=== PATIENT | female | born 1975 | race Caucasian/White ===

== ENCOUNTER 2019-01-18 09:54 | Emergency (ER) | payer MEDICAID ==
--- NOTE | 2019-01-18 12:05 | EDM.PDOCBH ---
ED HPI GENERAL MEDICAL PROBLEM - General Chief Complaint: Behavioral/Psych Stated Complaint: BI POLAR ISSUES Time Seen by Provider: 01/18/19 11:11 Source of Information: Reports: Patient, Provider (Dr. Elizalde's nurse from [facility]), RN Notes Reviewed History Limitations: Reports: No Limitations - History of Present Illness INITIAL COMMENTS - FREE TEXT/NARRATIVE: Patient is a 43-year-old female who presents to the ED for the evaluation of her bipolar. The patient states that she has had a diagnosis of bipolar for around 20 years now. She has tried multiple medications for this, and is most recently been started on Vraylar 2 weeks ago. She was to taper off of lithium while starting the Vraylar. Patient notes today however she is not noticing benefit from the Vraylar, she feels as if she is crawling up a wall, she notes she cannot sleep at night, she states that she is feeling more depressed, and has developed some tremors as well. She denies any sort of hearing any voices, or seeing anything that is not there. She further denies any suicidal thoughts or plans at this time. She notes some mild diarrhea, but believes this to be a side effect of the medication, otherwise she has no complaints. I did call her psychiatrist office, Dr. Elizalde, and was able to speak with his nurse regarding the case. The nurse states that the patient was supposed to be started on Vraylar on January 07 and was supposed to taper off the lithium, and take one 150 mg tablet every other day for a week. The nurse states that the patient called her last week in a panic, as she states she was not feeling well , and scheduled an appointment with a provider to be seen same day, but then subsequently canceled the appointment, as she had to put one of her cats down. The nurse notes that the patient told her she did not start the Vraylar as previously prescribed, and started taking the Vraylar last week, and quit the lithium altogether without tapering, and then started taking the lithium again without being told to start taking the lithium. The nurse notes that the patient is semi-noncompliant with her medications, states that she takes the medications for roughly a week, and just quits taking them because they make her feel weird. - Related Data Allergies Allergy/AdvReac Type Severity Reaction Status Date / Time No Known Allergies Allergy Verified 01/18/19 11:02 Home Meds: Home Meds Cariprazine Hydrochloride [Vraylar] 1.5 mg PO DAILY 01/18/19 [History] Levothyroxine 75 mg PO DAILY 01/18/19 [History] [place] Carbonate 150 mg PO ASDIRECTED 01/18/19 [History] Terazosin [Hytrin] 2 mg PO DAILY 01/18/19 [History] Topiramate [Topamax] 100 mg PO DAILY 01/18/19 [History] buPROPion HCl [Bupropion Xl] 150 mg PO DAILY 01/18/19 [History] busPIRone [Buspar] 15 mg PO DAILY 01/18/19 [History] Past Medical History Psychiatric History: Reports: Bipolar, Depression Social & Family History - Tobacco Use Smoking Status *Q: Never Smoker - Caffeine Use Caffeine Use: Reports: None - Recreational Drug Use Recreational Drug Use: No ED ROS GENERAL - Review of Systems Review Of Systems: See Below Constitutional: Denies: Fever, Chills Respiratory: Denies: Shortness of Breath Cardiovascular: Denies: Chest Pain GI/Abdominal: Reports: Diarrhea. Denies: Abdominal Pain, Nausea, Vomiting : Denies: Dysuria Neurological: Denies: Confusion, Headache Psychiatric: Reports: Depression (patient states increase in depression). Denies: Confusion, Cravings, Hallucinations, Homicidal Ideation, Mood Lability, Suicidal Ideation ED EXAM, BEHAVIORAL HEALTH - Physical Exam Exam: See Below Exam Limited By: No Limitations General Appearance: Alert, WD/WN, No Apparent Distress Eye Exam: Bilateral Eye: EOMI, Normal Inspection, PERRL Ears: Normal External Exam, Normal Canal, Hearing Grossly Normal, Normal TMs Throat/Mouth: Normal Inspection, Normal Lips, Normal Teeth, Normal Gums, Normal Oropharynx, Normal Voice, No Airway Compromise Head: Atraumatic, Normocephalic Neck: Normal Inspection Respiratory/Chest: No Respiratory Distress, Lungs Clear, Normal Breath Sounds, No Accessory Muscle Use, Chest Non-Tender Cardiovascular: Normal Peripheral Pulses, Regular Rate, Rhythm, No Murmur GI/Abdominal: Normal Bowel Sounds, Soft, Non-Tender, No Distention, No Mass Extremities: Normal Inspection, Normal Capillary Refill Neurological: Alert, Normal Mood/Affect, Normal Cognition, Normal Gait, Normal Reflexes, No Motor/Sensory Deficits, Oriented x 3 Psychiatric: Alert, Normal Affect, Normal Cognition, Normal Mood, Oriented, Restless. No: Agitated, Withdrawn, Flight of Ideas, Homicidal Thoughts, Suicidal Plan, Suicidal Thoughts, Auditory Hallucinations, Visual Hallucinations , Grandiose Thoughts, Paranoid Thoughts, Threatening Behavior Skin Exam: Warm, Dry, Intact, Normal color, No rash COURSE, BEHAVIORAL HEALTH COMP - Course Vital Signs: Last Vital Signs Temp 97.4 F 01/18/19 10:55 Pulse 98 01/18/19 10:55 Resp 13 01/18/19 10:55 BP 132/88 01/18/19 10:55 Pulse Ox 100 01/18/19 10:55 Discharge vs Psych Eval/Treatment:: 01/18/19 12:07 Patient presents to the ED for evaluation of her bipolar. Patient ultimately would like to be started on Depakote again, and be taken off the Vraylar. I did try calling Dr. Elizalde's psych office, at around 11:15, and was able to talk with his nurse but was not able to speak with a provider at this time. There seems to be conflicting stories between the patient and Dr. Elizalde's office. The nurse suggested that the patient might benefit from some sort inpatient treatment to help with this, however with the patient not having any sort of suicidal ideation, suicidal plans, and being cooperative with no tangential thoughts or flight of ideas, I do not believe that inpatient psychiatric treatment was warranted in this case. I have tried to call Dr. Lindsey to consult on the case as well. I called at around 1145, will wait for his call back, to discuss the case with him, to see if he would recommend anything. 01/18/19 12:[address] Lindsey, her hearing the patient's case, and her med list, he suggest stopping the Vraylar, as he states she might be having extrapyramidal side effects from this. He suggested not starting any Depakote however, as this is something that needed to be addressed by her regular provider. I do agree with his assessment at this time. Departure - Departure Time of Disposition: 12:23 Disposition: Home, Self-Care 01 Condition: Fair Clinical Impression: Bipolar 1 disorder, Encounter for medication management - Discharge Information *PRESCRIPTION DRUG MONITORING PROGRAM REVIEWED*: No *COPY OF PRESCRIPTION DRUG MONITORING REPORT IN PATIENT DUSTIN: No Instructions: Living With Bipolar Disorder Referrals: Meggan Figueroa PA-C [Primary Care Provider] - Forms: ED Department Discharge Additional Instructions: You were evaluated in the ER today regarding your bipolar disorder. Your case was discussed with our psychiatrist on-call Dr. Lindsey, and he recommends to stop taking the Vraylar, as this may be causing you to feel the way you're feeling, such as like you're feeling as if you're crawling up the wall. He does not recommend starting you on Depakote through the ER, and recommends that you follow up with your regular provider on Monday, to have further med changes done. At this time we cannot start you on Depakote through the ER, as we do not do psychiatric medication management. If you should have any worsening symptoms, like suicidal ideations, suicidal plans, etc. Please do not hesitate to come back to the ER for further evaluation before your next appointment with your psychiatrist. Dr. Lindsey also mentioned that they too are starting a virtual clinic through [facility], and you may take out the website at [email or web address] for further information. He states that this clinic is opening possibly next week, or beginning of the new year. Please return to the ER at any time if your symptoms change or worsen. Sepsis Event Note - Evaluation Sepsis Screening Result: No Definite Risk - Focused Exam Vital Signs: Vital Signs Temp Pulse Resp BP Pulse Ox 01/18/19 10:55 97.4 F 98 13 132/88 100 Date Exam was Performed: 01/18/19 Time Exam was Performed: 12:21
== END 2019-01-18 12:55 | disposition home or self-care (01) ==
LOC: JD.ED 09:54
DX: F31.9 Bipolar disorder, unspecified (principal)
CPT/HCPCS: 99283